=== PATIENT | male | born 1965 | race Caucasian/White ===

== ENCOUNTER 2018-08-03 07:49 | Emergency (ER) | payer OTHER ==
[~2018-08-03] VITALS: Ht 167.6 cm; Wt 74.8 kg
--- OUTSIDE RECORDS SUMMARY | 2018-08-03 07:52 | XMS REPORT | Clinical Summary ---
Author Author [facility] Address Unknown Phone Unavailable Care Team Providers Care Treating Engineer Helper Name Role Phone Lizbeth Astudillo MD PCP Allergies No Known Allergies Medications End Date Status Medication Sig Dispensed Refills Start Date 08/26/2017 Discontinued acetaminophen (TYLENOL) Insert 325 mg 0 325 MG suppository into the rectum every 4 (four) hours as needed for mild pain. 08/16/2017 sodium,potassium,mag Take 2 2 Bottle 0 sulfates 17.5-3.13-1.6 Bottles by 8 gram recon mouth once solnIndications: for 1 dose. Gastroesophageal reflux disease, esophagitis presence not specified, Colon cancer screening Active Problems Not on file Encounters Care Team Description Date Type Specialty Cesar Eduardo MD COLONOSCOPY w/bx 08/27/2017 Surgery Gastroenterology Kailyn Clarke MD 08/27/2017 Anesthesia Gastroenterology Event Cesar Eduardo MD Screen for colon cancer (Primary Dx); Colon cancer screening; Gastroesophageal reflux disease without esophagitis 08/27/2017 Hospital Gastroenterology Encounter Cesar Eduardo MD Gastroesophageal reflux disease, esophagitis presence not specified (Primary Dx); Colon cancer screening 08/16/2017 Office Visit Gastroenterology after 08/02/2017 Family History Medical History Relation Name Comments Thyroid disease Father Diabetes Mother Relation Name Status Comments Father Mother Alive Social History Date Tobacco Use Types Packs/Day Years Used Former Smoker Smokeless Tobacco: Never Used Alcohol Use Drinks/Week oz/Week Comments No Sex Assigned at Date Recorded Not on file Industry Job Start Date Occupation Not on file Not on file Not on file Travel End Travel History Travel Start No recent travel history available. Last Filed Vital Signs Time Taken Vital Sign Reading 08/27/2017 10:00 AM CDT Blood Pressure 123/71 08/27/2017 10:00 AM CDT Pulse 61 08/27/2017 9:30 AM CDT Temperature 36.2 C (97.1 F) 08/27/2017 10:00 AM CDT Respiratory Rate 14 08/27/2017 10:00 AM CDT Oxygen Saturation 99% - Inhaled Oxygen - Concentration 08/27/2017 8:20 AM CDT Weight 74.8 kg (165 lb) 08/27/2017 8:20 AM CDT Height 167.6 cm (5' 6") 08/27/2017 8:20 AM CDT Body Mass Index 26.63 Plan of Treatment Health Maintenance Due Date Last Done Comments COLON CANCER SCREENING 09/06/2015 SHINGLES VACCINES (#1) 09/06/2015 INFLUENZA VACCINE 11/17/2018 Procedures Comments Procedure Name Priority Date/Time Associated Diagnosis SURGICAL PATHOLOGY Routine 08/27/2017 REQUEST 11:15 AM CDT ESOPHAGOGASTRODUODENOSCOP 08/27/2017 Colon cancer screening Y (EGD) 9:00 AM CDT Gastroesophageal reflux disease without esophagitis COLONOSCOPY 08/27/2017 Colon cancer screening 9:00 AM CDT Gastroesophageal reflux disease without esophagitis after 08/02/2017 Results * Surgical pathology request (08/27/2017 11:15 AM CDT) [facility] [place] [place] DEPARTMENT OF PATHOLOGY AND GENOMIC MEDICINE Surgical pathology report See link below for PDF Lab [facility] [place] [place] DEPARTMENT OF Report PATHOLOGY AND GENOMIC MEDICINE Result status This is Final Report to [facility] [place] [place] DEPARTMENT OF [id number] PATHOLOGY AND GENOMIC MEDICINE Performing Organization Address City/State/Zipcode Phone Number [facility] [place] [place] DEPARTMENT OF [address] [place] [address]. [place] [address] PATHOLOGY AND GENOMIC MEDICINE after 08/02/2017 Insurance Payer Benefit Subscriber ID Type Phone Address Plan / Group BCBS ANTHEM xxxxxxxxxxxx PPO BLUE CROSS BCBS BCBS OUT xxxxxxxxxxxx PPO OF STATE Advance Directives Patient has advance care planning documents on file. For more information, pleas e contact: Braydon Norman [address] [place] [address]
[2018-08-03] MEDS ORDERED: IBUPROFEN 600 MG TAB PO ONE (08:30)
--- NOTE | 2018-08-03 08:55 | Diagnostic Imaging Report ---
Exam: Left hand 3 views History: Laceration to dorsal hand, concern for fracture or foreign body Comparison: None. Findings: No acute displaced fracture or dislocation. Appropriate alignment between the distal radius, lunate, and capitate is maintained on the lateral radiograph. Small ossific fragment adjacent to the ulnar styloid likely represents a prior avulsion injury. There is a soft tissue defect over the dorsal aspect of the hand at the level of the third metacarpal. There are multiple (approximately 7-10) punctate radiopaque foreign bodies in the soft tissues of the dorsal hand, between the third and fourth metacarpal shafts. Impression: No acute osseous abnormality. Laceration of the dorsal soft tissues of the hand, with approximately 7-10 punctate radiopaque foreign bodies between the third and fourth metacarpals. Signed by: Dr. Vinh Crawford M.D. on 08/03/2018 8:52 AM
[2018-08-03] MEDS ORDERED: LIDOCAINE JELLY 2% 10ML URO-JET TOP ONE (09:30)
--- NOTE | 2018-08-03 09:40 | NUR ---
DR. MCCLELLAND SPOKE WITH DR. ELLIS. HE WILL BE HERE IN 1HR TO EVALUATE PATIENT
[2018-08-03] MEDS ORDERED: LIDOCAINE HCL 2% LOCAL INJ 5 ML SDV VIAL INJ ONE (10:30)
[2018-08-03] MEDS ORDERED: LIDOCAINE 1% W/EPINEPHRINE 20 ML VIAL INJ ONE ×2 (11:15→12:00)
--- NOTE | 2018-08-03 11:21 | NUR ---
DR. ELLIS AT BEDSIDE AT BEDSIDE EVALUATING PATIENT
[2018-08-03] MEDS ORDERED: AUGMENTIN 875-1 EACH PO (11:52)
[2018-08-03] MEDS ORDERED: BACITRACIN ZINC 0.9GM TP ONE (12:00)
--- NOTE | 2018-08-03 12:19 | NUR ---
PATIENT GIVEN CD OF X-RAY. IS ON PHONE MAKING APPT FOR RHONDA. HE STATED HE WANTED TO SEE HIM ROSARIO
== END 2018-08-03 12:20 | disposition home or self-care (01) ==
LOC: ER 07:49
DX: S61.422A Laceration with foreign body of left hand, initial encounter (principal); W45.8XXA Other foreign body or object entering through skin, initial encounter; Y99.0 Civilian activity done for income or pay
CPT/HCPCS: 73130; 99284; J2001